=== PATIENT | male | born 1950 | race Caucasian/White ===

== ENCOUNTER 2022-05-30 15:23 | Inpatient (IN) | payer MEDICARE, SELFPAY ==
--- NOTE | 2022-05-30 15:40 | PC.NURSE ---
arrived by wheelchair to room 206 from admissions
--- NOTE | 2022-05-30 16:02 | ECG_ITS ---
APPROVED REPORT Exam: Resting ECG HR:101 bpm ECG Measurements Heart Rate 101 AXES QRSd 89 QRS -25 QT 370 T 49 QTc 428 Conclusion ATRIAL FIBRILLATION WITH RAPID VENTRICULAR RESPONSE WITH ABERRANT CONDUCTION OR VENTRICULAR PREMATURE COMPLEXES LOW QRS VOLTAGE IN PRECORDIAL LEADS [QRS DEFLECTION < 1.0 mV IN CHEST LEADS] INFERIOR MYOCARDIAL INFARCTION , PROBABLY OLD [40+ ms Q WAVE AND/OR ST/T ABNORMALITY IN II/aVF] ABNORMAL ECG UNCONFIRMED REPORT Electronically signed by : Frandy Cutler MD 05/30/2022 21:32:59
--- NOTE | 2022-05-30 16:02 | CA_ITS ---
APPROVED REPORT EXAM: Comprehensive 2D, Doppler, and color-flow Echocardiogram [employer] Burner: Isaura Upton, [place], RVS Ht: 6 ft 4 in Wt: 330lbs BSA: 2.74 BP: 167/92 mmHg Rhythm: Atrial Fibrillation Indications: CHF, Chest pressure, Possible inferior MS, SOB, Pedal edema, weight gain, HTN 2D Dimensions IVSd 1.44 cm LVEF (Visual) 35.20 % PWd 1.40 cm LA Volume 67.30 mL LVDd 6.06 cm LA Volume Index 24.00 mL/m2 (M/F) 16-34 LVDs 5.02 cm Aortic Root 3.48 cm Left Atrium 4.18 cm LVOT 2.12 cm (M/F) 1.5-2.5 M-Mode Dimensions RVDd 3.59 cm (0.9-2.6) LA Diam 4.28 cm (1.9-4.0) LVDd 5.73 cm (3.5-5.7) Ao Diam 4.12 cm (2.0-3.7) LVDs 4.87 cm (3.5-5.7) IVSd 1.13 cm (0.6-1.1) PWd 1.23 cm (0.6-1.1) EF (Teich) 37.30% EPSs 1.83 cm FS 18.30% EDV (Teich) 177.30 mL TAPSE 1.67 (<1.7) ESV (Teich) 111.20 mL LV Diastology E Decel Time 117.00 (160-240 msec) E/A Ratio 3.35 MED E' 6.20 (< 7 cm/sec) MED A' 2.70 cm/s E'/MED E' Ratio 19.35 (>14) LAT E' 8.40 (<10 cm/sec) LAT A' 6.00 cm/s E/LAT E' Ratio 14.29 (>14) Aortic Valve LVOT Max 74.00 (70-110 cm/s) LVOT VTI 12.67 cm AoV Peak Trever. 121.00 (50-130 cm/s) AO Peak GR. 5.90 mmHg AO Mean GR. 2.90 (<5 mmHg) AO VTI 18.18 (18-25 cm) JONATHON (VTI) 2.46 (2.5-4.5 cm2) Mitral Valve MV A Velocity 36.00 (40-130 cm/s) E/A Ratio 3.35 MV Decel. Time 117.00 (160-240 ms) Pulmonary Valve PV Peak Velocity 50.00 (50-150 cm/s) Tricuspid Valve TR P. Velocity 262.00 cm/s RAP Estimate 10.00 mmHg RVSP 37.40 mmHg Left Ventricle Technically difficult study because of the patient factors and poor acoustic windows. Left atrium is mildly enlarged, left ventricle is normal size mild concentric left ventricular hypertrophy, reduced left ventricular systolic function, estimated ejection fraction 40%, left ventricle is globally hypokinetic. Diastolic parameters are inconclusive. Right Ventricle Right atrium and right ventricle are mildly enlarged with normal contractility. Aortic Valve Aortic valve is thickened and calcified without Doppler evidence of aortic stenosis, there is mild aortic insufficiency. Mitral Valve Mitral valve leaflets are minimally thickened, there is mild mitral regurgitation. Tricuspid Valve Tricuspid valve grossly normal, there is mild tricuspid regurgitation, calculated right ventricular systolic pressure 37 mmHg. Pulmonic Valve Pulmonic valve is poorly visualized. Great Vessels Aortic root is normal size. Inferior vena cava is mildly dilated with less than 50% inspiratory collapse. Pericardium No significant pericardial effusion noted. Conclusion 1. Mild biatrial enlargement, normal left ventricular size, estimated ejection fraction 40%, left ventricle is globally hypokinetic, diastolic parameters are inconclusive. 2. Mildly enlarged right ventricle with normal contractility. 3. Thickened and calcified aortic valve without Doppler evidence of aortic stenosis, there is mild aortic insufficiency. 4. Mild mitral and tricuspid regurgitation. Calculated right ventricular systolic pressure 37 mmHg. 5. No significant pericardial effusion noted. 6. Inferior vena cava is mildly dilated with less than 50% inspiratory collapse. Electronically signed by : Barrie Adam MD 05/31/2022 05:39:38
--- NOTE | 2022-05-30 16:03 | EXP.CARD.CON ---
History of Present Illness History of Present Illness Consult date: 05/30/22 Requesting physician: Ammy Quiros Consult reason: shortness of breath Chief complaint: SOA, edema Additional Medical History:: 1. Obesity 2. Shortness of breath, edema and weight gain of 30 pounds in the last 6 months 3. Recurrent nephrolithiasis 4. 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 Patient was subsequently admitted for suspected congestive heart failure and possible atrial fibrillation. He admits he is long overdue for evaluation and has not seen anyone in 20 years. Non-smoker No history of diabetes Family history of coronary artery disease in his brother who last year at age 75 He takes no medications [facility] Disclaimer: The information contained in this section may have been updated after the patient was seen, as this information can be updated by other users. Family History (Updated 05/30/22 @ 16:00 by Rupali Brennan RN) Heart disease Heart attack Social History (Updated 05/30/22 @ 16:00 by Rupali Brennan RN) Smoking Status: Never smoker alcohol intake: current current occupational status: employed Travel in the last 8 weeks: None Review of Systems Review of Systems Review of systems:: pertinent systems reviewed and negative unless documented below *Cardiovascular Cardiovascular: Denies chest pain, Reports dyspnea, Reports leg edema and Reports orthopnea *Respiratory Respiratory: Reports dyspnea Exam Constitutional Constitutional: no acute distress *Routine Neck Exam Neck: Present supple; Absent JVD or carotid bruit *Routine Respiratory Exam Respiratory: Present CTA bilaterally *Routine Cardiovascular Exam Cardiovascular: Present RRR; Absent murmur, gallop or rubs *Routine Extremities Exam Extremities: Present edema Comments: Brawny, discolored lower extremities likely due to venous stasis. 3+ edema noted *Routine Neurological Exam Neurological: Present alert, oriented X3 and CN II-XII intact Meds Home Medications and Allergies Home Medications Medication Instructions Recorded Confirmed Type No Known Home Medications 05/30/22 05/30/22 History New Prescriptions to Start Prescriptions: Allergies Allergy/AdvReac Type Severity Reaction Status Date / Time INGREDIENT: NO KNOWN - NO Allergy Unknown Uncoded 04/16/17 14:51 KNOWN DRUG ALLERGY Assessment and Plan *Assessment and plan (1) Shortness of breath: Status: Acute Category: Medical Code(s): R06.02 - Shortness of breath (2) Paroxysmal nocturnal dyspnea: Status: Acute Category: Medical Code(s): R06.00 - Dyspnea, unspecified (3) Edema: Status: Acute Category: Medical Code(s): R60.9 - Edema, unspecified (4) Obesity: Status: Acute Category: Medical Code(s): E66.9 - Obesity, unspecified Plan 1. Recent constellation of symptoms including shortness of breath, paroxysmal nocturnal dyspnea, lower extremity edema with 30 pound weight gain and chest pressure at night. Concern for atrial fibrillation, congestive heart failure, cardiomyopathy among other etiologies. Will obtain EKG and echocardiogram and begin with a dose of IV Lasix to see if this will help with his lower extremity edema and shortness of breath. Labs are pending at this time. Chest x-ray has been ordered. Further recommendations to follow pending above results. 2. Obesity 3. History of nephrolithiasis EKG obtained does show atrial fibrillation with a rate of 101 bpm. Possible inferior GA. We will begin Lovenox short-term with plans to transition to oral anti
[2022-05-30 16:07] VITALS: BMI 40.2
--- NOTE | 2022-05-30 16:08 | XR_ITS ---
PROCEDURE INFORMATION: Exam: XR Chest Exam date and time: 05/30/2022 5:18 PM Age: 71 years old Clinical indication: Shortness of breath; Additional info: Chf TECHNIQUE: Imaging protocol: Radiologic exam of the chest. Views: 2 views. COMPARISON: No relevant prior studies available. FINDINGS: Lungs: No pulmonary edema or consolidation. Pleural spaces: Mild blunting of the left costophrenic angle. No pneumothorax. Heart/Mediastinum: Mild cardiomegaly. Aortic calcifications. Bones/joints: No acute abnormality. IMPRESSION: 1. Mild cardiomegaly. No pulmonary edema or consolidation. 2. Mild blunting of the left costophrenic angle may be secondary to pleural fluid, atelectasis, and/or prominent pleural fat.
--- NOTE | 2022-05-30 16:15 | CT_ITS ---
PROCEDURE INFORMATION: Exam: CTA Chest With Contrast Exam date and time: 05/30/2022 5:24 PM Age: 71 years old Clinical indication: Shortness of breath; Additional info: New a. Fib, SOA, pnd, le edema TECHNIQUE: Imaging protocol: Computed tomographic angiography of the chest with contrast. 3D rendering (Not supervised by radiologist): MIP and/or 3D reconstructed images were created by the technologist. Radiation optimization: All CT scans at this facility use at least one of these dose optimization techniques: automated exposure control; mA and/or kV adjustment per patient size (includes targeted exams where dose is matched to clinical indication); or iterative reconstruction. Contrast material: ISOVUE 370; Contrast volume: 70 ml; Contrast route: INTRAVENOUS (IV); Other protocol: This patient has received 0 known CTs and 0 known cardiac nuclear medicine studies in the 12 months prior to the current study. COMPARISON: CR XR CHEST 2V 05/30/2022 5:18 PM FINDINGS: Pulmonary arteries: Suboptimal arterial opacification of the pulmonary arteries (MPA HU 150-160). No pulmonary artery embolism identified with suboptimal evaluation of the peripheral pulmonary arteries. Main pulmonary artery is mildly dilated measuring 3.4 cm in diameter. Possible small posterior right lower lobe artery calcification. Aorta: Thoracic aorta is poorly opacified given phase of imaging. Dilated ascending thoracic aorta measures 4.7 cm in diameter. Scattered calcified aortic atherosclerosis. Lungs: Mild interlobular septal thickening in the lung bases. Mild dependent opacities likely reflect atelectasis. Pleural spaces: Small bilateral pleural effusions. No pneumothorax. Heart: Mild cardiomegaly. Aortic valvular calcifications. Mild mitral annular and valvular calcifications. Coronary arteries: Severe coronary artery calcifications. Lymph nodes: Mildly enlarged right hilar lymph node measuring 1.4 cm in short axis dimension, likely reactive. No other enlarged lymph nodes. Bones/joints: No acute osseous abnormality or suspicious osseous lesion. Multilevel degenerative changes of the included spine. Soft tissues: Unremarkable. Other findings: No acute abnormality within the included upper abdomen. Mild circumferential esophageal wall thickening. IMPRESSION: 1. Suboptimal arterial opacification of the pulmonary arteries. No central pulmonary artery embolism. Peripheral pulmonary arteries are suboptimally evaluated with no definite embolus seen. Mildly dilated main pulmonary artery suggesting there may be pulmonary arterial hypertension. 2. Dilated ascending thoracic aorta measuring 4.7 cm in diameter. 3. Small bilateral pleural effusions. Lung bases with mild interlobular septal thickening likely reflecting interstitial edema. 4. Mild cardiomegaly. Aortic valvular calcifications and mitral annular and valvular calcifications. Echocardiogram can be obtained as clinically indicated to assess cardiac and valvular function. 5. Severe coronary artery calcifications. 6. Mild circumferential esophageal wall thickening which could be related to degree of distention and/or esophagitis, correlate clinically.
[2022-05-30 16:23] VITALS: BP 152/82; PULSE 91; RESP 18; TEMP 36.7; O2SAT 97; BMI 40.2
[2022-05-30 16:26] VITALS: PULSE 100
[2022-05-30 16:29] LABS: Basophils # 0.1 K/mm3 (0-0.2); Basophils % 0.7 % (0.1-2.0); Eosinophils # 0.2 K/mm3 (0.0-0.4); Eosinophils % 2.3 % (0.1-12.0); Hematocrit 47.2 % (42.0-52.0); Hemoglobin 15.7 g/dL (14.1-18.0); Lymphocytes # 2.3 K/mm3 (0.7-4.5); Lymphocytes % 21.8 % (10-50); Mean Corpuscular HGB Conc 33.2 g/dL (31.8-35.4); Mean Corpuscular Hemoglobin 30.4 pg (27.0-31.2); Mean Corpuscular Volume 91.6 fl (80-94); Mean Platelet Volume 9.1 fl (7.4-10.4); Monocytes # 0.7 K/mm3 (0.1-1.0); Monocytes % 6.2 % (1.7-9.3); Neutrophils # 7.4 K/mm3 (1.8-7.8); Neutrophils % 69.1 % (37.0-80.0); Platelet Count 143 K/mm3 (142-424); Red Blood Count 5.16 M/mm3 (4.60-6.20); Red Cell Distribution Width 13.8 % (11.5-17.5); White Blood Count 10.6 K/mm3 (4.8-10.8)
[2022-05-30 16:33] LABS: Coronavirus 19, PCR Not Detected (NotDetected); Influenza A, PCR Not Detected (NotDetected); Influenza B, PCR Not Detected (NotDetected)
[2022-05-30 17:00] LABS: Alanine Aminotransferase 37 U/L (12-78); Albumin/Globulin Ratio 1.3 (1.1-1.8); Alkaline Phosphatase 47 U/L (38-126); Anion Gap 10.2 mEq/L (5-15); Aspartate Amino Transferase 46 U/L (17-59); Bilirubin,Total 0.7 mg/dl (0.2-1.3); Blood Urea Nitrogen 22 mg/dl (9-20); Calcium 8.6 mg/dl (8.4-10.2); Carbon Dioxide 23 mmol/L (22.0-30.0); Chloride 111 mmol/L (98-107); Creatinine Clearance Estimated 148 mL/min (50-200); Estimated Glomerular Filt Rate 74 ml/min (>60); GFR (African American) 90 ML/MIN (>60); Glucose 104 mg/dl (74-100); Potassium 4.2 mmoL/L (3.5-5.1); Sodium 140 mmol/L (136-145)
[2022-05-30 17:31] LABS: Thyroid Stimulating Hormone 2.82 uIU/mL (0.465-4.68)
[2022-05-30 17:50] LABS: Vitamin B12 250 pg/mL (239-931)
--- NOTE | 2022-05-30 17:52 | EXP.HP ---
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 He has had increasing shortness of breath over the past several months and reports that he has gained over 30 pounds over the past 6 months. He gets extremely short of breath with exertion. His leg edema has gotten worse with some darkening of the skin of the calfs bilaterally. He does not sleep well. He wakes up at nighttime short of breath. He has a significant family history for heart disease. A brother September 23, 2021 at age 75 of a heart attack. He also lost a half brother to heart disease. The patient is not a smoker. [facility] Disclaimer: The information contained in this section may have been updated after the patient was seen, as this information can be updated by other users. Medical History (Updated 05/30/22 @ 18:13 by Ammy Quiros MD) Heart failure Kidney stones Quadriceps tendon rupture Family History (Updated 05/30/22 @ 17:58 by Ammy Quiros MD) Coronary artery disease Heart disease Heart attack Cancer Social History (Updated 05/30/22 @ 16:00 by Rupali Brennan RN) Smoking Status: Never smoker alcohol intake: current current occupational status: employed Travel in the last 8 weeks: None Review of Systems Review of Systems Review of systems:: pertinent systems reviewed and negative unless documented below Constitutional Constitutional: Reports difficulty sleeping, Reports fatigue, Reports lethargy, Reports snoring and Reports weight gain (30 pounds over the past 6 months) Eyes Eyes: Reports system reviewed and no additional complaints, except as documented ENT Ears, Nose, Mouth, and Throat: Reports system reviewed and no additional complaints, except as documented *Cardiovascular Cardiovascular: Reports system reviewed and no additional complaints, except as documented, Denies chest pain, Reports dyspnea, Reports dyspnea on exertion, Reports edema, Reports irregular heart rhythm (Not aware), Reports leg edema, Reports leg ulcers, Reports orthopnea, Reports paroxysmal nocturnal dyspnea, Reports pedal edema and Denies syncope *Respiratory Respiratory: Reports dyspnea, Reports dyspnea on exertion and Reports snoring *Gastrointestinal Gastrointestinal: Denies belching, Denies bloating, Denies change in bowel habits, Denies change in stool character and Denies coffee ground emesis *Genitourinary Genitourinary: Reports system reviewed and no additional complaints, except as documented and Denies difficulty urinating *Musculoskeletal Musculoskeletal: Reports muscle weakness Integumentary/Breasts Skin/Breast: Reports system reviewed and no additional complaints, except as documented, Reports change in pigmentation (Legs) and Reports skin swelling *Neurologic Neurologic: Reports system reviewed and no additional complaints, except as documented and Denies syncope Psychiatric Psychiatric: Reports system reviewed and no additional complaints, except as documented Endocrine Endocrine: Reports system reviewed and no additional complaints, except as documented, Reports change in body appearance (Weight gain) and Reports fatigue Hematologic/Lymphatic Hematologic/Lymphatic: Reports system reviewed and no additional complaints, except as documented Allergic/Immunologic Allergic/Immunologic: Reports system reviewed and no additional complaints, except as documented Meds Home Medications and Allergies Home Medications Medication Instructions Recorded Confirmed Type No Known Home Medications 05/30/22 05/30/22 History New Prescriptions to Start Prescriptions: Allergies Allergy/AdvReac Type Severity Reaction Status Date / Time No Known Drug Allergies Allergy Verified 05/30/22 17:45 INGREDIENT: NO KNOWN - NO Allergy Unknown Uncoded 04/16/17 14:51 KNOWN DRUG ALLERGY
[2022-05-30 19:55] VITALS: BP 153/95; PULSE 96; RESP 18; TEMP 36.9; O2SAT 99
[2022-05-30 20:00] VITALS: PULSE 70
[2022-05-30 21:19] LABS: Hemoglobin A1C 7.5 % (4.0-6.0)
[2022-05-31] VITALS (25 sets, daily range): BP systolic 103–143; BP diastolic 62–97; PULSE 60–93; RESP 12–20; TEMP 36.4–37.1; O2SAT 94–98; BMI 39.9
--- NOTE | 2022-05-31 05:04 | PC.NURSE ---
NO ACUTE CHANGES THIS SHIFT. PT HAS RESTED INTERMITTENTLY THIS SHIFT. VSS. NO C/O CHEST PAIN OR SOB. BLE REMAIN SWOLLEN WITH +2 PITTING EDEMA. NO C/O PAIN THIS SHIFT. AMBULATING TO THE BATHROOM WITH STANDBY ASSIST. CALL DINH WITHIN REACH.
[2022-05-31 06:51] LABS: Chloride 110 mmol/L (98-107); Potassium 4.3 mmoL/L (3.5-5.1); Sodium 139 mmol/L (136-145)
[2022-05-31 06:54] LABS: Anion Gap 9.3 mEq/L (5-15); Blood Urea Nitrogen 18 mg/dl (9-20); Calcium 8.3 mg/dl (8.4-10.2); Carbon Dioxide 24 mmol/L (22.0-30.0); Chol/HDL Ratio 8.8 (1-3.5); Cholesterol 175 mg/dl (140-200); Creatinine Clearance Estimated 147 mL/min (50-200); Estimated Glomerular Filt Rate 84 ml/min (>60); GFR (African American) 101 ML/MIN (>60); Glucose 132 mg/dl (74-100); HDL Cholesterol 20 mg/dl (40-60); Triglycerides 222 mg/dl (30-150); VLDL Cholesterol 44 mg/dL (0-40)
[2022-05-31 07:05] LABS: Direct LDL Cholesterol 117.47 mg/dL (100-129)
--- NOTE | 2022-05-31 08:02 | EXP.ACUTE.PN ---
Subjective *Date: 05/31/22 *Time: 08:02 Interval history: He feels better today. He is not as short of breath. He only shows 3 pounds weight loss by the record. His legs definitely look improved. His lungs sound clear. He is in good spirits. Heart catheterization is planned for this afternoon. His ejection fraction was read as 40%. His LDL is 117. His A1c is 7.5%. CTA shows calcification of the coronary arteries. Medical Exam Vital signs and Labs for Last 24 Hours: Vital Signs Temp Pulse Pulse Resp BP Pulse Ox 05/31/22 07:30 97.9 F 87 17 143/94 H 96 05/31/22 04:00 60 05/31/22 04:00 97.8 F 87 18 142/78 H 96 05/30/22 20:00 70 05/31/22 00:00 80 05/31/22 00:00 98.6 F 83 20 119/71 98 05/30/22 19:55 98.4 F 96 H 18 153/95 H 99 05/30/22 16:26 100 H 05/30/22 16:23 98.1 F 91 H 18 152/82 H 97 Intake and Output 05/30/22 05/31/22 05/31/22 19:59 03:59 11:59 Intake Total 360 / 360 Output Total 0 / 0 0 / 0 Balance 0 / 360 360 / 360 Intake: Intake, Oral Amount 360 / 360 Output: Output, Urine Amount 0 / 0 0 / 0 Other: Number of Unmeasured Voids 1 Weight 330 lb 7 oz 327 lb 9 oz Patient Weight 05/31/22 11:59 Weight 327 lb 9 oz Laboratory Results - last 24 hr 05/30/22 16:00: SARS-CoV-2 (PCR) Not detected, Influenza A Untype (PCR) Not detected, Influenza Type B (PCR) Not detected 05/30/22 16:14: WBC 10.6, RBC 5.16, Hgb 15.7, Hct 47.2, MCV 91.6, MCH 30.4, MCHC 33.2, RDW 13.8, Plt Count 143, MPV 9.1, Neut % (Auto) 69.1, Lymph % (Auto) 21.8, [place] % (Auto) 6.2, Eos % (Auto) 2.3, Baso % (Auto) 0.7, Neut # (Auto) 7.4, Lymph # (Auto) 2.3, [place] # (Auto) 0.7, Eos # (Auto) 0.2, Baso # (Auto) 0.1 05/30/22 16:14: Sodium 140, Potassium 4.2, Chloride 111 H, Carbon Dioxide 23, Anion Gap 10.2, BUN 22 H, Creatinine 1.00, Estimated Creat Clear 148, Estimated GFR 74, Est GFR ( Amer) 90, Glucose 104 H, Calcium 8.6, Total Bilirubin 0.7, AST 46, ALT 37, Alkaline Phosphatase 47, Total Protein 7.0, Albumin 4.0, Globulin 3.0, Albumin/Globulin Ratio 1.3, Vitamin B12 250, TSH 2.82 05/30/22 16:14: Hemoglobin A1c 7.5 H 05/31/22 06:22: Sodium 139, Potassium 4.3, Chloride 110 H, Carbon Dioxide 24, Anion Gap 9.3, BUN 18, Creatinine 0.90, Estimated Creat Clear 147, Estimated GFR 84, Est GFR ( Amer) 101, Glucose 132 H D, Calcium 8.3 L, Triglycerides 222 H, Cholesterol 175, LDL Cholesterol Direct 117.47, VLDL Cholesterol 44 H, HDL Cholesterol 20 L, Cholesterol/HDL Ratio 8.8 H I & O for Labs for Last 24 Hours: Intake & Output 05/28/22 05/29/22 05/30/22 05/31/22 11:59 11:59 11:59 11:59 Intake Total 360 / 360 Output Total 0 / 0 Balance 360 / 360 Weight 327 lb 9 oz Head: Present normocephalic ENT: Present mucous membranes moist Neck: Present normal inspection Respiratory: Present CTA bilaterally (Improved.) and rales (A few faint bibasilar rales.); Absent respiratory distress or rhonchi Cardiac: Absent Regular Rhythm (Atrial fibrillation persists. Controlled rate.) GI: Present soft; Absent tenderness or organomegaly Rectal (male): Present deferred (male): Present deferred Extremities: Present edema (Edema is still marked but improved and the stasis changes have improved.) Skin: Present intact Neuro: Present alert and oriented x 3 Assessment and Plan *Assessment and plan (1) Heart failure with reduced ejection fraction: Status: Acute Category: Medical Code(s): I50.20 - Unspecified systolic (congestive) heart failure (2) Systolic congestive heart failure: Status: Acute Category: Medical Code(s): I50.20 - Unspecified systolic (congestive) heart failure (3) Atrial fibrillation: Status: Acute Category: Medical Code(s): I48.91 - Unspecified atrial fibrillation (4) Edema: Status: Acute Category: Medical Code(s): R60.9 - Edema, unspecified (5) Obesity: St
--- NOTE | 2022-05-31 08:13 | EXP.CARD.PN ---
Subjective Subjective Date: 05/31/22 Time: 08:13 Principal diagnosis: CHF, A. fib, CM Interval history: 71-year-old white male in bed in no acute distress. Patient states he did sleep better last night after diuresis yesterday. He believes his edema in his lower extremities has improved some. Echocardiogram shows an EF of around 40% with global hypokinesis. CTA of the chest negative for large pulmonary emboli with poor imaging of the smaller arteries. Dilated ascending thoracic aorta measuring 4.7 cm. Severe coronary calcifications noted. Mild circumferential esophageal wall thickening possibly related to distention or esophagitis. Discussed recommendation for cardiac catheterization and patient agrees to proceed. Risk, benefits and procedure explained to the patient. Exam Data for Last 24 hours Vital signs and Labs for Last 24 Hours: Temp Pulse Resp BP Pulse Ox 97.9 F 87 17 143/94 H 96 05/31/22 07:30 05/31/22 07:30 05/31/22 07:30 05/31/22 07:30 05/31/22 07:30 Laboratory Results - last 24 hr 05/30/22 16:00: SARS-CoV-2 (PCR) Not detected, Influenza A Untype (PCR) Not detected, Influenza Type B (PCR) Not detected 05/30/22 16:14: WBC 10.6, RBC 5.16, Hgb 15.7, Hct 47.2, MCV 91.6, MCH 30.4, MCHC 33.2, RDW 13.8, Plt Count 143, MPV 9.1, Neut % (Auto) 69.1, Lymph % (Auto) 21.8, [place] % (Auto) 6.2, Eos % (Auto) 2.3, Baso % (Auto) 0.7, Neut # (Auto) 7.4, Lymph # (Auto) 2.3, [place] # (Auto) 0.7, Eos # (Auto) 0.2, Baso # (Auto) 0.1 05/30/22 16:14: Sodium 140, Potassium 4.2, Chloride 111 H, Carbon Dioxide 23, Anion Gap 10.2, BUN 22 H, Creatinine 1.00, Estimated Creat Clear 148, Estimated GFR 74, Est GFR ( Amer) 90, Glucose 104 H, Calcium 8.6, Total Bilirubin 0.7, AST 46, ALT 37, Alkaline Phosphatase 47, Total Protein 7.0, Albumin 4.0, Globulin 3.0, Albumin/Globulin Ratio 1.3, Vitamin B12 250, TSH 2.82 05/30/22 16:14: Hemoglobin A1c 7.5 H 05/31/22 06:22: Sodium 139, Potassium 4.3, Chloride 110 H, Carbon Dioxide 24, Anion Gap 9.3, BUN 18, Creatinine 0.90, Estimated Creat Clear 147, Estimated GFR 84, Est GFR ( Amer) 101, Glucose 132 H D, Calcium 8.3 L, Triglycerides 222 H, Cholesterol 175, LDL Cholesterol Direct 117.47, VLDL Cholesterol 44 H, HDL Cholesterol 20 L, Cholesterol/HDL Ratio 8.8 H I & O for Last 24 hours: Intake & Output 05/28/22 05/29/22 05/30/22 05/31/22 11:59 11:59 11:59 11:59 Intake Total 360 / 360 Output Total 0 / 0 Balance 360 / 360 Weight 327 lb 9 oz Constitutional Constitutional: no acute distress *Routine Respiratory Exam Respiratory: Present crackles Comments: Basilar crackles *Routine Cardiovascular Exam Cardiovascular: Present irregularly irregular *Routine Extremities Exam Extremities: Present edema Progress Note: A&P Assessment and plan (1) Heart failure with reduced ejection fraction: Status: Acute (2) Systolic congestive heart failure: Status: Acute (3) Atrial fibrillation: Status: Acute (4) Edema: Status: Acute (5) Obesity: Status: Acute (6) Type 2 diabetes mellitus: Status: Acute (7) Hyperlipidemia associated with type 2 diabetes mellitus: Status: Acute Assessment and Plan Assessment and Plan for All Diagnoses:: 1. Newly diagnosed atrial fibrillation. Patient did receive a dose of Lovenox last evening but with plans for cardiac catheterization today we will hold off until after cardiac catheterization to implement oral anticoagulation. 2. Newly diagnosed HFrEF with ejection fraction of 40% with global hypokinesis. Patient is on IV Lasix. We will start carvedilol and Entresto. 3. Severe coronary artery calcifications noted with plans for cardiac catheterization today. 4. Newly diagnosed diabetes mellitus type 2, per Dr. Quiros 5. Hyperlipidemia, statin therapy started 6. Dilated ascending thoracic aorta measuring 4.7 cm 7. Obesity SCAI score A6
--- NOTE | 2022-05-31 08:38 | IR_ITS ---
APPROVED REPORT Patient Location: Inpatient Developing Machine Operator: ZEN Macedo RT (R) PROCEDURES Left heart catheterization Left ventriculogram Selective coronary angiogram INDICATION New onset cardiomyopathy, New onset atrial fibrillation, Coronary artery disease, Extensive coronary artery calcification Informed consent was obtained prior to the procedure. COMPLICATIONS None Estimated Blood Loss: Less than 10 mls TECHNIQUE One percent lidocaine used to anesthetize the right anterior aspect of the wrist. The right radial artery was accessed via the Seldinger technique. A 6 Khmer sheath was placed in the right radial artery. 2.5 mg of verapamil, 800 mcg of nitroglycerin, 1mg Lidocaine and 5000 U Heparin were given through the arterial sheath. The papa catheter and EBU 3.75 guide catheter were also used to perform left heart catheterization, left ventriculogram and selective coronary angiogram. At the end of the procedure the sheath was removed good hemostasis was achieved using Traclet band, patient was transferred to the postop holding area in stable condition. ANGIOGRAPHIC RESULTS The left main artery Normal The left anterior descending artery Proximal calcified with an eccentric 70 to 80% stenosis followed by an additional proximal 70% calcified stenosis followed by an additional calcified proximal 70 to 80% stenosis with mid vessel 30% stenoses and a distal 40 to 50% stenosis. Large first diagonal artery has proximal 40% stenoses The circumflex artery Is dominant and gives rise to a moderate sized ramus intermedius which has proximal 60 and 70% tandem stenoses. The circumflex artery itself has an eccentric 50% stenosis with a 90% concentric stenosis at the origin of a large terminal bifurcating obtuse marginal artery. The superior branch of the terminal obtuse marginal artery has a proximal 40% stenosis and is 2.5 mm in diameter while the inferior branch has a 1 cm segment concentric 90% stenosis which supplies a 2 mm and a 1.75 mm additional branch The right coronary artery Nondominant and proximally subtotally occluded The DOW ventriculogram reveals Dilated ventricle ejection fraction 40% The left ventricular end-diastolic pressure 35 to 40 mmHg IMPRESSION Severe calcified three-vessel coronary disease as described above Dilated ventricle with reduced ejection fraction accompanied by severely elevated LVEDP PLAN 1. Patient requires revascularization. We will discuss options. My first recommendation is that of coronary artery bypass surgery. Our understanding is patient may be reluctant to proceed with bypass surgery therefore percutaneous revascularization options will be discussed with him tomorrow. 2. Beta-blockers and Entresto 3. LDL less than 55 to be achieved with high intensity statin 4. Anticoagulation for atrial fibrillation Electronically signed by : Alex Milton MD 05/31/2022 14:07:53
[2022-05-31 08:52] LABS: NT Pro Brain Natriuretic Pep. 2090 pg/mL (0-125)
--- NOTE | 2022-05-31 19:01 | PC.NURSE ---
pts vs have been stable since coming back to floor from laborer [place]. tracelet came off at 1900, dsg cdi. pt has son at bedside. independent to br. no questions or concerns at this time.
[2022-06-01] VITALS: BP 102/61; PULSE 70; PULSE 77; PULSE 88; RESP 18; TEMP 36.5; O2SAT 94
--- NOTE | 2022-06-01 00:33 | PC.NURSE ---
DR MARTIN NOTIFIED RE: AFIB CONTROLLED RATE AND 15 BEAT RUN V TACH. ORDER TO CONTINUE TO MONITOR. PATIENT IS ASYMPTOMATIC.
[2022-06-01 02:00] VITALS: PULSE 70
--- NOTE | 2022-06-01 03:06 | PC.NURSE ---
S/P CARDIAC CATH 05/31/22. A FIB CONTROLLED RATE ON TELEMETRY. VSS/AFEBRILE. DRSG TO RIGHT RADIAL C/D/I. SON AT BEDSIDE.
[2022-06-01 04:00] VITALS: BP 112/85; PULSE 65; PULSE 74; RESP 18; TEMP 36.4; O2SAT 99; BMI 38.7
[2022-06-01 07:53] LABS: Basophils # 0.1 K/mm3 (0-0.2); Basophils % 0.9 % (0.1-2.0); Chloride 106 mmol/L (98-107); Eosinophils # 0.2 K/mm3 (0.0-0.4); Eosinophils % 2.6 % (0.1-12.0); Hematocrit 50.1 % (42.0-52.0); Lymphocytes # 2.3 K/mm3 (0.7-4.5); Lymphocytes % 26.1 % (10-50); Mean Corpuscular HGB Conc 31.9 g/dL (31.8-35.4); Mean Platelet Volume 8.9 fl (7.4-10.4); Monocytes # 0.5 K/mm3 (0.1-1.0); Monocytes % 5.6 % (1.7-9.3); Neutrophils # 5.6 K/mm3 (1.8-7.8); Neutrophils % 64.7 % (37.0-80.0); Platelet Count 150 K/mm3 (142-424); Red Blood Count 5.33 M/mm3 (4.60-6.20); Red Cell Distribution Width 13.9 % (11.5-17.5); Sodium 140 mmol/L (136-145); White Blood Count 8.6 K/mm3 (4.8-10.8)
[2022-06-01 07:56] LABS: Blood Urea Nitrogen 15 mg/dl (9-20); Calcium 8.3 mg/dl (8.4-10.2); Carbon Dioxide 30 mmol/L (22.0-30.0); Creatinine Clearance Estimated 142 mL/min (50-200); Estimated Glomerular Filt Rate 84 ml/min (>60); GFR (African American) 101 ML/MIN (>60); Glucose 142 mg/dl (74-100)
[2022-06-01 08:00] VITALS: BP 125/73; PULSE 68; PULSE 73; RESP 18; TEMP 36.7; O2SAT 96
--- NOTE | 2022-06-01 08:16 | EXP.ACUTE.PN ---
Subjective *Date: 06/01/22 *Time: 08:16 Interval history: Patient is feeling well this am. He states he actually has energy today and feels like getting up and walking. Has lost a significant amount of weight. Has been eating and drinking. Medical Exam Vital signs and Labs for Last 24 Hours: Vital Signs Temp Pulse Pulse Resp BP Pulse Ox 06/01/22 04:00 97.6 F 74 18 112/85 99 06/01/22 04:00 65 06/01/22 04:00 65 05/31/22 23:22 88 06/01/22 02:00 70 06/01/22 00:00 70 06/01/22 00:00 88 06/01/22 00:00 97.7 F 77 18 102/61 L 94 L 05/31/22 20:00 70 05/31/22 20:00 94 L 05/31/22 21:05 98.6 F 66 18 107/62 L 94 L 05/31/22 20:05 98.0 F 72 18 103/64 L 95 05/31/22 19:05 98.0 F 82 18 108/73 L 96 05/31/22 12:00 76 05/31/22 16:00 68 05/31/22 18:05 97.8 F 61 16 128/88 95 05/31/22 16:00 68 05/31/22 12:00 76 05/31/22 17:05 97.9 F 62 16 113/69 97 05/31/22 16:35 98.0 F 77 16 119/77 97 05/31/22 16:05 97.6 F 61 16 103/77 L 96 05/31/22 15:35 97.8 F 66 16 114/76 97 05/31/22 15:05 97.6 F 92 H 18 117/86 97 05/31/22 14:50 98.0 F 74 16 119/97 H 05/31/22 14:35 98.0 F 81 16 110/87 97 05/31/22 14:00 70 18 131/87 97 05/31/22 14:05 82 12 140/92 H 95 05/31/22 14:03 85 05/31/22 13:55 82 18 137/89 97 05/31/22 13:50 76 18 133/93 H 95 05/31/22 11:04 98.8 F 80 18 123/83 96 Intake and Output 05/31/22 06/01/22 06/01/22 19:59 03:59 11:59 Intake Total 300 / 1300 1000 / 1300 Balance 300 / 1300 1000 / 1300 Intake: Intake, Oral Amount 300 / 1300 1000 / 1300 Other: Number of Voids 2 Number of Unmeasured Voids 2 Weight 317 lb 12.8 oz Patient Weight 06/01/22 11:59 Weight 317 lb 12.8 oz Laboratory Results - last 24 hr 05/31/22 06:22: NT-Pro-B Natriuret Pep 2090 H 06/01/22 07:40: WBC 8.6, RBC 5.33, Hgb 16.0, Hct 50.1, MCV 94.0, MCH 30.0, MCHC 31.9, RDW 13.9, Plt Count 150, MPV 8.9, Neut % (Auto) 64.7, Lymph % (Auto) 26.1, [place] % (Auto) 5.6, Eos % (Auto) 2.6, Baso % (Auto) 0.9, Neut # (Auto) 5.6, Lymph # (Auto) 2.3, [place] # (Auto) 0.5, Eos # (Auto) 0.2, Baso # (Auto) 0.1 06/01/22 07:40: Sodium 140, Potassium 4.0, Chloride 106, Carbon Dioxide 30, Anion Gap 8.0, BUN 15, Creatinine 0.90, Estimated Creat Clear 142, Estimated GFR 84, Est GFR ( Amer) 101, Glucose 142 H, Calcium 8.3 L I & O for Labs for Last 24 Hours: Intake & Output 05/29/22 05/30/22 05/31/22 06/01/22 11:59 11:59 11:59 11:59 Intake Total 360 / 360 1300 / 1300 Output Total 0 / 0 Balance 360 / 360 1300 / 1300 Weight 327 lb 9 oz 317 lb 12.8 oz Microbiology Reports for the Last 24 Hours: Microbiology 05/30/22 16:23 Urine,Clean Catch Urine Culture - Preliminary NO GROWTH AFTER 24 HOURS Head: Present normocephalic ENT: Present mucous membranes moist Neck: Present normal inspection Respiratory: Present CTA bilaterally (Improved.) and rales (A few faint bibasilar rales.); Absent respiratory distress or rhonchi Cardiac: Absent Regular Rhythm (Atrial fibrillation persists. Controlled rate.) GI: Present soft; Absent tenderness or organomegaly Rectal (male): Present deferred (male): Present deferred Extremities: Present edema (Edema is still marked but improved and the stasis changes have improved.) Skin: Present intact Neuro: Present alert and oriented x 3 Assessment and Plan *Assessment and plan (1) Heart failure with reduced ejection fraction: Status: Acute Category: Medical Code(s): I50.20 - Unspecified systolic (congestive) heart failure (2) Systolic congestive heart failure: Status: Acute Category: Medical Code(s): I50.20 - Unspecified systolic (congestive) heart failure (3) Atrial fibrillation: Status: Acute Category: Medical Code(s): I48
--- NOTE | 2022-06-01 10:31 | P.PN_ITS ---
Subjective Subjective Date: 06/01/22 Time: 12:20 Principal diagnosis: CHF, A. fib, CM Interval history: 71 yo WM in room in NAD. No complaints overnight. Wt down 13 lbs this admit. Renal function stable. Telemetry shows sinus rhythm with brief run of nonsustained V. tach early this morning. Patient is agreeable to proceed with bypass surgery. We have spoken with and will begin transfer process. Exam Data for Last 24 hours Vital signs and Labs for Last 24 Hours: Temp Pulse Resp BP Pulse Ox 98.0 F 68 18 125/73 96 06/01/22 08:00 06/01/22 08:00 06/01/22 08:00 06/01/22 08:00 06/01/22 08:00 Laboratory Results - last 24 hr 06/01/22 07:40: WBC 8.6, RBC 5.33, Hgb 16.0, Hct 50.1, MCV 94.0, MCH 30.0, MCHC 31.9, RDW 13.9, Plt Count 150, MPV 8.9, Neut % (Auto) 64.7, Lymph % (Auto) 26.1, [place] % (Auto) 5.6, Eos % (Auto) 2.6, Baso % (Auto) 0.9, Neut # (Auto) 5.6, Lymph # (Auto) 2.3, [place] # (Auto) 0.5, Eos # (Auto) 0.2, Baso # (Auto) 0.1 06/01/22 07:40: Sodium 140, Potassium 4.0, Chloride 106, Carbon Dioxide 30, Anion Gap 8.0, BUN 15, Creatinine 0.90, Estimated Creat Clear 142, Estimated GFR 84, Est GFR ( Amer) 101, Glucose 142 H, Calcium 8.3 L I & O for Last 24 hours: Intake & Output 05/29/22 05/30/22 05/31/22 06/01/22 11:59 11:59 11:59 11:59 Intake Total 360 / 360 1540 / 1540 Output Total 0 / 0 Balance 360 / 360 1540 / 1540 Weight 327 lb 9 oz 317 lb 12.8 oz Microbiology Reports for the Last 24 Hours: Microbiology 05/30/22 16:23 Urine,Clean Catch Urine Culture - Preliminary NO GROWTH AFTER 24 HOURS Constitutional Constitutional: no acute distress *Routine Respiratory Exam Respiratory: Present CTA bilaterally *Routine Cardiovascular Exam Cardiovascular: Present irregularly irregular *Routine Extremities Exam Extremities: Present edema Progress Note: A&P Assessment and plan (1) Heart failure with reduced ejection fraction: Status: Acute (2) Systolic congestive heart failure: Status: Acute (3) Atrial fibrillation: Status: Acute (4) Edema: Status: Acute (5) Obesity: Status: Acute (6) Type 2 diabetes mellitus: Status: Acute (7) Hyperlipidemia associated with type 2 diabetes mellitus: Status: Acute (8) Coronary artery disease: Status: Acute Assessment and Plan Assessment and Plan for All Diagnoses:: 1. Newly diagnosed atrial fibrillation. On lovenox. Rate controlled on coreg. 2. Newly diagnosed HFrEF with ejection fraction of 40% with global hypokinesis. Patient is on IV Lasix. We will start carvedilol and Entresto. Wt down 13 lbs. 3. Severe coronary artery calcifications noted with three-vessel CABG on left heart catheterization with recommendation for CABG. 4. Newly diagnosed diabetes mellitus type 2, per Dr. Quiros 5. Hyperlipidemia, statin therapy started 6. Dilated ascending thoracic aorta measuring 4.7 cm 7. Obesity Continue current medications. Transfer to for consideration of CABG. Follow-up in our office as an outpatient
[2022-06-01 12:00] VITALS: BP 133/81; PULSE 84; RESP 16; TEMP 37.1; O2SAT 96
[2022-06-01 14:57] VITALS: BMI 38.6
--- NOTE | 2022-06-01 16:25 | PC.NURSE ---
REPORT WAS CALLED TO [facility]. AMBULANCE NOTIFIED FOR TRANSPORT. PT IS ALERT AND ORIENTED AND AWARE OF WHAT IS GOING ON. PT LEFT FACILITY AT 1626.
--- NOTE | 2022-06-04 15:37 | EXP.DC.SUM ---
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 He has had increasing shortness of breath over the past several months and reports that he has gained over 30 pounds over the past 6 months. He gets extremely short of breath with exertion. His leg edema has gotten worse with some darkening of the skin of the calfs bilaterally. He does not sleep well. He wakes up at nighttime short of breath. He has a significant family history for heart disease. A brother September 23, 2021 at age 75 of a heart attack. He also lost a half brother to heart disease. The patient is not a smoker. Hospital Course Hospital Course Hospital Course: Cardiology saw patient at admission with the following documentation and plan: Plan 1.? Recent constellation of symptoms including shortness of breath, paroxysmal nocturnal dyspnea, lower extremity edema with 30 pound weight gain and chest pressure at night.? Concern for atrial fibrillation, congestive heart failure, cardiomyopathy among other etiologies.? Will obtain EKG and echocardiogram and begin with a dose of IV Lasix to see if this will help with his lower extremity edema and shortness of breath.? Labs are pending at this time.? Chest x-ray has been ordered.? Further recommendations to follow pending above results. 2.? Obesity 3.? History of nephrolithiasis EKG obtained showed atrial fibrillation with a rate of 101 bpm.? Possible inferior SD.? We will begin Lovenox short-term with plans to transition to oral anticoagulation prior to discharge. Will obtain CTA of the chest to rule out pulmonary embolus as source of possible shortness of breath and lower extremity edema in a patient who is morbidly obese. The day following admission patient felt better. He was not short of breath. His legs had less edema. And his lungs sounded clear. He was followed by cardiology with a new diagnosis of HFrEF with an ejection fraction of 40% with global hypokinesis. He was started on carvedilol and Entresto. With his severe coronary artery calcification, cardiac catheterization was planned. He was also noted to be a newly diagnosed diabetic type II. Cardiac cath revealed severe calcified three-vessel coronary disease with a dilated ventricle with reduced ejection fraction. Patient was felt to need revascularization. Patient was noted to have a 13 pound weight loss with diuresis. CABG was discussed and patient and family were in agreement. This was to be facilitated by cardiology. In the PM of 06/01/2022 Patient was transferred to for consideration of CABG via ambulance. Exam Data for Last 24 hours Vital signs and Labs for Last 24 Hours: Temp Pulse Resp BP Pulse Ox 98.8 F 84 16 133/81 96 06/01/22 12:00 06/01/22 12:00 06/01/22 12:00 06/01/22 12:00 06/01/22 12:00 I & O for Last 24 hours: Intake & Output 06/02/22 06/03/22 06/04/22 06/05/22 11:59 11:59 11:59 11:59 Intake Total 240 / 240 Balance 240 / 240 Weight 317 lb 7.45 oz Narrative: Medical Exam Vital signs and Labs for Last 24 Hours: Vital Signs ? Temp Pulse Pulse Resp BP Pulse Ox ?06/01/22 04:00 ?97.6 F ? ?74 ?18 ?112/85 ?99 ?06/01/22 04:00 ? ?65 ?06/01/22 04:00 ? ?65 ?05/31/22 23:22 ? ?88 ?06/01/22 02:00 ? ?70 ?06/01/22 00:00 ? ?70 ?06/01/22 00:00 ? ?88 ?06/01/22 00:00 ?97.7 F ? ?77 ?18 ?102/61 L ?94 L ?05/31/22 20:00 ? ?70 ?05/31/22 20:00 ?94 L ?05/31/22 21:05 ?98.6 F ? ?66 ?18 ?107/62 L ?94 L ?05/31/22 20:05 ?98.0 F ? ?72 ?18 ?103/64 L ?95 ?05/31/22 19:05 ?98.0 F ? ?82 ?18 ?108/73 L ?96 ?05/31/22 12:00 ? ?76 ?05/31/22 16:00 ? ?68 ?05/31/22 18:05 ?97.8 F ? ?61 ?16 ?128/88 ?95 ?05/31/22 16:00 ? ?68 ?05/31/22 12:00 ? ?76 ?05/31/22 17:05 ?97.9 F ? ?62 ?16 ?113/69 ?97 ?05/31/22 16:35 ?98.0 F ? ?77 ?16
== END 2022-06-01 16:28 | disposition short-term general hospital (02) | DRG 286 ==
PROVIDERS: Internal Medicine; Admitting Provider Family Medicine; PCP Family Medicine; Visit Provider Family Medicine
PROC: 4A023N7 Measurement of Cardiac Sampling and Pressure, Left Heart, Percutaneous Approach (ICD-10-PCS; principal; 2022-05-31 14:00)
DX: I48.91 Unspecified atrial fibrillation (principal); I50.21 Acute systolic (congestive) heart failure; I25.10 Atherosclerotic heart disease of native coronary artery without angina pectoris; I42.9 Cardiomyopathy, unspecified; E66.9 Obesity, unspecified; Z68.38 Body mass index [BMI] 38.0-38.9, adult; E78.5 Hyperlipidemia, unspecified; E11.69 Type 2 diabetes mellitus with other specified complication
CPT/HCPCS: G0379; 36415; 71046; 71275; 80048; 80053; 80061; 82607; 83036; 83880; 84443; 85025; 87086; 93005; 93306; 93458; 99152; C1725; C1760; C1769; C9803; J1644; Q9967; U0003; U0005

== ENCOUNTER → 2022-08-15 11:29 | Outpatient (CLI) | payer MEDICARE, SELFPAY ==
--- NOTE | 2022-08-15 11:36 | XR_ITS ---
FINAL REPORT CLINICAL HISTORY: CAD COMPARISON: None FINDINGS: Two views of the chest were obtained. The heart size and pulmonary vascularity are within normal limits. The mediastinum is normal. No acute pulmonary abnormality is identified. There is no pneumothorax. Moderate degenerative change in the thoracic spine. IMPRESSION: No acute cardiopulmonary process. Reviewed, Interpreted and Dictated by Rhys Meza III, MD Transcribed by Za Gomez Authenticated and [facility]
[2022-08-15 13:22] LABS: Prothrombin Time 11.8 seconds (10.1-12.5)
[2022-08-15 13:23] LABS: Basophils % 0.4 % (0.1-2.0); Eosinophils # 0.1 K/mm3 (0.0-0.4); Eosinophils % 1.8 % (0.1-12.0); Hematocrit 49.8 % (42.0-52.0); Hemoglobin 16.3 g/dL (14.1-18.0); Lymphocytes # 2.3 K/mm3 (0.7-4.5); Lymphocytes % 29.2 % (10-50); Mean Corpuscular HGB Conc 32.8 g/dL (31.8-35.4); Mean Corpuscular Hemoglobin 29.9 pg (27.0-31.2); Mean Corpuscular Volume 91.1 fl (80-94); Mean Platelet Volume 9.2 fl (7.4-10.4); Monocytes # 0.6 K/mm3 (0.1-1.0); Monocytes % 7.4 % (1.7-9.3); Neutrophils # 4.8 K/mm3 (1.8-7.8); Neutrophils % 61.2 % (37.0-80.0); Platelet Count 167 K/mm3 (142-424); Red Blood Count 5.47 M/mm3 (4.60-6.20); Red Cell Distribution Width 14.4 % (11.5-17.5); White Blood Count 7.9 K/mm3 (4.8-10.8)
[2022-08-15 15:47] LABS: Alanine Aminotransferase 29 U/L (12-78); Albumin Level 4.5 g/dl (3.5-5.0); Albumin/Globulin Ratio 1.3 (1.1-1.8); Alkaline Phosphatase 75 U/L (38-126); Anion Gap 15.8 mEq/L (5-15); Aspartate Amino Transferase 38 U/L (17-59); Bilirubin,Total 0.9 mg/dl (0.2-1.3); Blood Urea Nitrogen 19 mg/dl (9-20); Calcium 9.2 mg/dl (8.4-10.2); Carbon Dioxide 24 mmol/L (22.0-30.0); Chloride 104 mmol/L (98-107); Estimated Glomerular Filt Rate 96 ml/min (>60); GFR (African American) 116 ML/MIN (>60); Globulin 3.4 g/dL (1.3-3.2); Glucose 115 mg/dl (74-100); Potassium 4.8 mmoL/L (3.5-5.1); Sodium 139 mmol/L (136-145); Total Protein,Serum 7.9 g/dl (6.3-8.2)
== END ==
PROVIDERS: PCP Family Medicine; Visit Provider Thoracic Surgery (Cardiothoracic Vascular Surgery)
DX: I25.119 Atherosclerotic heart disease of native coronary artery with unspecified angina pectoris (principal)
CPT/HCPCS: 36415; 71046; 80053; 85025; 85610

== ENCOUNTER 2022-10-04 14:42 | Observation (INO) | payer MEDICARE, SELFPAY ==
[2022-10-04] VITALS (14 sets, daily range): BP systolic 104–135; BP diastolic 63–110; PULSE 71–100; RESP 13–20; TEMP 37.1; O2SAT 97–98; BMI 35.5; BMI 34.6
--- NOTE | 2022-10-04 14:44 | ECG_ITS ---
APPROVED REPORT Exam: Resting ECG HR:77 bpm ECG Measurements Heart Rate 77 AXES QRSd 109 QRS -35 QT 412 T 59 QTc 444 Conclusion ATRIAL FLUTTER/TACHYCARDIA WITH ABERRANT CONDUCTION OR VENTRICULAR PREMATURE COMPLEXES POSSIBLE RIGHT VENTRICULAR CONDUCTION DELAY [RSR (QR) IN V1/V2] MODERATE VOLTAGE CRITERIA FOR LVH, CONSIDER NORMAL VARIANT [MEETS CRITERIA IN ONE OF: R(aVL), S(V1), R(V5), R(V5/V6)+S(V1)] ABNORMAL ECG INTERPRETATION BASED ON A DEFAULT AGE OF 40 YEARS UNCONFIRMED REPORT Electronically signed by : Frandy Cutler MD 10/05/2022 08:30:34
--- NOTE | 2022-10-04 14:50 | HMH.EDGENADL ---
Discharge Plan Disposition Chief Complaint: Arrhythmia/Palpitations Clinical Impressions Clinical Impression: New onset atrial flutter, Congestive heart failure (CHF) Discharge ED Provider: Lux Vaughn General Adult HPI General Chief complaint: Arrhythmia/Palpitations Stated complaint: Arrythmia Time Seen by Provider: 10/04/22 14:44 Mode of Arrival: Wheelchair Source of Information: Patient and Spouse History of Present Illness HPI narrative: The patient was brought to the emergency department by his offline cutter for new onset atrial flutter. The patient has history of congestive heart failure and had coronary artery bypass surgery the end of July. He did not notice the atrial flutter. This was noticed by his offline cutter for during a follow-up visit. Related Data Home Medications Medication Instructions Recorded Confirmed apixaban 5 mg tablet (Eliquis) 5 mg PO BID Blood thinner 10/04/22 10/04/22 atorvastatin 80 mg tablet 80 mg PO HS Cholesterol 10/04/22 10/04/22 clopidogrel 75 mg tablet 75 mg PO DAILY Blood thinner 10/04/22 10/04/22 docusate sodium 100 mg capsule 100 mg PO BID stool 10/04/22 10/04/22 furosemide 40 mg tablet 80 mg PO BID Edema 10/04/22 10/04/22 isosorbide mononitrate 30 mg 30 mg PO DAILY blood pressure 10/04/22 10/04/22 tablet,extended release 24 hr metformin 500 mg tablet 500 mg PO DAILY dm 10/04/22 10/04/22 Allergies Allergy/AdvReac Type Severity Reaction Status Date / Time No Known Drug Allergies Allergy Verified 10/04/22 13:54 [facility] Disclaimer: The information contained in this section may have been updated after the patient was seen, as this information can be updated by other users. Medical History (Updated 10/04/22 @ 17:09 by Lux Vaughn MD) Heart failure Kidney stones Quadriceps tendon rupture Surgical History S/P CABG x 3 Family History Other Cancer Coronary artery disease Heart attack Heart disease Social History Smoking Status: Never smoker alcohol intake: current current occupational status: employed Travel in the last 8 weeks: None ROS Obtained: Yes All systems reviewed & no additional complaints except as documented Cardiovascular Cardiovascular: Reports pedal edema Physical Exam General General appearance: alert Head Head exam: atraumatic Eye Eye exam: Present normal appearance ENT ENT exam: Present normal exam Neck Neck exam: Present normal inspection and full ROM; Absent tenderness or meningismus Chest Chest inspection: Present normal inspection and symmetric chest wall rise; Absent tenderness Respiratory Respiratory exam: Present normal lung sounds bilaterally; Absent respiratory distress or accessory muscle use Cardiovascular Cardiovascular exam: Present normal rhythm, irregular rhythm and normal heart sounds; Absent regular rate, bradycardia or tachycardia Abdominal Exam Abdominal exam: Present soft and normal bowel sounds; Absent distention, tenderness, heel tap sign, Finch's sign, Rovsing's sign, tenderness at McBurney's Point or mass Extremities Exam Extremities exam: Present normal inspection, full ROM and edema (+2 pitting edema bilaterally.) Back Exam Back exam: Present normal inspection; Absent CVA tenderness (R) or CVA tenderness (L) Neurological Exam Neurological exam: Present alert and oriented X3 Psychiatric Psychiatric exam: Present normal affect and normal mood Skin Skin exam: Present warm, dry, intact and normal color Medical Decision Making Shaquille Inquiry Pt receiving controlled substance: No Vital Signs: 10/04/22 14:42 10/04/22 15:11 10/04/22 15:06 Temperature Temperature Source Pulse Rate 72 81 Pulse Rate [Right] 100 H Respiratory Rate 19 16 Blood Pressure 128/82 112/70 Blood Pressure [Right Arm] 135/110 H Blood Pr
--- NOTE | 2022-10-04 14:53 | PC.NURSE ---
Per Dr. Vaughn. VO Metoprolol 5mg IVP q 5 mins with max 25mg or SBP < 90.
--- NOTE | 2022-10-04 15:35 | PC.NURSE ---
notified of sustained A-Flutter with Max of Metoprolol administered as directed.
--- NOTE | 2022-10-04 15:36 | PC.NURSE ---
Dr Simon vázquez for Dr Quiros pt.
--- NOTE | 2022-10-04 15:37 | PC.NURSE ---
Dr Vaughn speaking with dr Montes
--- NOTE | 2022-10-04 15:40 | PC.NURSE ---
pt resting no need at this time
--- NOTE | 2022-10-04 15:49 | PC.NURSE ---
COVID SWAB OBTAINED AND SENT TO LAB
[2022-10-04 15:51] LABS: Coronavirus 19, PCR Not Detected (NotDetected); Influenza A, PCR Not Detected (NotDetected); Influenza B, PCR Not Detected (NotDetected)
--- NOTE | 2022-10-04 16:02 | PC.NURSE ---
ECHO team notified of order
--- NOTE | 2022-10-04 16:30 | PC.NURSE ---
Called report to Sin FELIX on 2nd floor. Informed Jakob PINON is @ BS. Will call the floor when patient is ready to be transferred to the floor
--- NOTE | 2022-10-04 16:40 | PC.NURSE ---
vascular was in to do echo
--- NOTE | 2022-10-04 16:42 | PC.NURSE ---
has been paged
--- NOTE | 2022-10-04 16:44 | PC.NURSE ---
Spoke with to notify him of patient's ECHO performed @ [facility] and sustained a-flutter.
--- NOTE | 2022-10-04 18:35 | EXP.ACUTE.PN ---
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 Quiros for his primary care. He states he had 3 vessel CABG about 6 weeks ago and was recently diagnosed with diabetes. He states he has been feeling fairly well this week and came to his routine cardiology appointment this morning at the [facility] cardiology clinic. At that appointment, he was told he was in atrial flutter and he was escorted to the ER for further treatment. The ER physician told me that he spoke with Dr. Milton who directed him to give the patient IV Metoprolol and to get a stat Echo. Evidently metoprolol was unsuccessful in converting patient back to sinus rhythm, so I was called to admit patient for further evaluation. I have not spoken to anyone from the cardiology clinic today. There are no preliminary echo results available for review and the cardiology clinic progress note from today has conflicting information in the plan. It states the patient is on IV Lasix and Lovenox but then later states that he is taking Eliquis. The patient states he has been treated with oral Lasix 40 mg twice daily but he increased the dose to 80 mg twice daily a few weeks ago because he thought he had some extra leg swelling. He states he has not been taking Lovenox but has been on Eliquis. He states he has not been taking Entresto for a few weeks. Medical Exam Vital signs and Labs for Last 24 Hours: Vital Signs Temp Pulse Pulse Resp BP BP Pulse Ox 10/04/22 17:44 98 10/04/22 16:59 98.7 F 71 14 115/69 98 10/04/22 16:46 98.7 F 71 13 106/63 L 10/04/22 16:30 71 17 106/63 L 97 10/04/22 16:00 72 19 108/71 L 97 10/04/22 15:33 71 15 118/75 97 10/04/22 15:26 71 14 116/76 98 10/04/22 15:16 72 16 112/79 98 10/04/22 15:21 72 18 113/71 98 10/04/22 15:31 72 16 118/75 97 10/04/22 15:06 81 16 112/70 97 10/04/22 15:11 72 128/82 10/04/22 14:42 100 H 19 135/110 H 98 Intake and Output 10/04/22 10/04/22 10/04/22 07:59 15:59 23:59 Other: Weight 292 lb 284 lb 9.868 oz Patient Weight 10/04/22 23:59 Weight 284 lb 9.868 oz Laboratory Results - last 24 hr 10/04/22 15:45: SARS-CoV-2 (PCR) Not detected, Influenza A Untype (PCR) Not detected, Influenza Type B (PCR) Not detected I & O for Labs for Last 24 Hours: Intake & Output 10/01/22 10/02/22 10/03/22 10/04/22 23:59 23:59 23:59 23:59 Weight 284 lb 9.868 oz Constitutional: Present no acute distress Respiratory: Present normal respiratory effort Comment:: Irregularly irregular GI: Present normal bowel sounds; Absent tenderness Extremities: Present normal inspection, full ROM and edema (left leg 2+, right leg 1+) Comment:: purple discoloration over lower legs Neuro: Present Grossly Intact and moves all extremities Assessment and Plan *Assessment and plan (1) New onset atrial flutter: Status: Acute Category: Medical Code(s): I48.92 - Unspecified atrial flutter (2) Congestive heart failure (CHF): Status: Acute Category: Medical Code(s): I50.9 - Heart failure, unspecified (3) Coronary artery disease: Status: Acute Category: Medical Code(s): I25.10 - Atherosclerotic heart disease of false pass coronary artery without angina pectoris (4) Type 2 diabetes mellitus: Status: Acute Category: Medical Code(s): E11.9 - Type 2 diabetes mellitus without complications (5) Heart failure with reduced ejection fraction: Status: Acute Category: Medical Code(s): I50.20 - Unspecified systolic (congestive) heart failure (6) Atrial fibrillation: Status: Acute Category: Medical Code(s): I48.91 - Unspecified atrial fibrillation (7) Edema: Status: Acute Category: Medical Code(
--- NOTE | 2022-10-04 19:00 | XR_ITS ---
PROCEDURE INFORMATION: Exam: XR Chest Exam date and time: 10/04/2022 7:15 PM Age: 71 years old Clinical indication: Other: New a. Flutter; Prior surgery; Surgery date: 1-6 months; Surgery type: Cabg; Additional info: New onset a . flutter, recent cabg TECHNIQUE: Imaging protocol: Radiologic exam of the chest. Views: 2 views. COMPARISON: CR XR CHEST 2V 08/15/2022 11:47 AM FINDINGS: Lungs: There has developed moderate left perihilar infiltrate. Right lung appears clear. Pleural spaces: Unremarkable. No pleural effusion. No pneumothorax. Heart/Mediastinum: Unremarkable. No cardiomegaly. Bones/joints: Moderate degenerative changes noted in the spine. Sternotomy wires are in place IMPRESSION: Left perihilar infiltrate concerning for pneumonia
[2022-10-04 19:23] LABS: Basophils % 0.5 % (0.1-2.0); Eosinophils # 0.3 K/mm3 (0.0-0.4); Eosinophils % 3.3 % (0.1-12.0); Hematocrit 41.9 % (42.0-52.0); Hemoglobin 13.3 g/dL (14.1-18.0); Lymphocytes # 2.1 K/mm3 (0.7-4.5); Lymphocytes % 22.6 % (10-50); Mean Corpuscular HGB Conc 31.7 g/dL (31.8-35.4); Mean Corpuscular Hemoglobin 29.5 pg (27.0-31.2); Mean Platelet Volume 9.9 fl (7.4-10.4); Monocytes # 0.6 K/mm3 (0.1-1.0); Monocytes % 6.3 % (1.7-9.3); Neutrophils # 6.1 K/mm3 (1.8-7.8); Neutrophils % 67.3 % (37.0-80.0); Platelet Count 217 K/mm3 (142-424); Red Blood Count 4.51 M/mm3 (4.60-6.20); Red Cell Distribution Width 14.6 % (11.5-17.5); White Blood Count 9.1 K/mm3 (4.8-10.8)
[2022-10-04 19:24] LABS: Chloride 99 mmol/L (98-107)
[2022-10-04 19:25] LABS: Potassium 3.6 mmoL/L (3.5-5.1); Sodium 140 mmol/L (136-145)
[2022-10-04 19:28] LABS: Alanine Aminotransferase 40 U/L (12-78); Albumin Level 4.3 g/dl (3.5-5.0); Albumin/Globulin Ratio 1.2 (1.1-1.8); Alkaline Phosphatase 67 U/L (38-126); Anion Gap 16.6 mEq/L (5-15); Aspartate Amino Transferase 51 U/L (17-59); Bilirubin,Total 0.6 mg/dl (0.2-1.3); Blood Urea Nitrogen 21 mg/dl (9-20); Calcium 9.4 mg/dl (8.4-10.2); Carbon Dioxide 28 mmol/L (22.0-30.0); Creatinine Clearance Estimated 127 mL/min (50-200); Estimated Glomerular Filt Rate 84 ml/min (>60); GFR (African American) 101 ML/MIN (>60); Globulin 3.6 g/dL (1.3-3.2); Glucose 125 mg/dl (74-100); Total Protein,Serum 7.9 g/dl (6.3-8.2)
[2022-10-04 19:29] LABS: Magnesium 1.9 mg/dl (1.6-2.3)
[2022-10-04 19:38] LABS: NT Pro Brain Natriuretic Pep. 1500 pg/mL (0-125)
[2022-10-04 19:59] LABS: Thyroid Stimulating Hormone 2.23 uIU/mL (0.465-4.68)
[2022-10-04 20:57] LABS: POC Glucose,Bedside 144 (70-110)
[2022-10-05] VITALS: BP 119/69; PULSE 70; RESP 20; TEMP 36.4; O2SAT 96
[2022-10-05 04:00] VITALS: BP 126/79; PULSE 70; RESP 18; TEMP 36.7; O2SAT 99; BMI 36.9
[2022-10-05 05:34] LABS: POC Glucose,Bedside 124 (70-110)
[2022-10-05 06:55] LABS: Chloride 100 mmol/L (98-107); Sodium 140 mmol/L (136-145)
[2022-10-05 06:56] LABS: Potassium 4.4 mmoL/L (3.5-5.1)
[2022-10-05 06:58] LABS: Blood Urea Nitrogen 18 mg/dl (9-20); Creatinine Clearance Estimated 136 mL/min (50-200); Estimated Glomerular Filt Rate 112 ml/min (>60); GFR (African American) 135 ML/MIN (>60)
[2022-10-05 06:59] LABS: Anion Gap 19.4 mEq/L (5-15); Carbon Dioxide 25 mmol/L (22.0-30.0); Glucose 120 mg/dl (74-100)
[2022-10-05 07:14] VITALS: O2SAT 98
[2022-10-05 07:32] VITALS: BP 145/84; PULSE 70; RESP 18; TEMP 36.8; O2SAT 99
--- NOTE | 2022-10-05 07:42 | HMH.PHAINT1 ---
Pharmacy Intervention Comments: home medication list verified using list from outpatient pharmacy and cardiology notes
[2022-10-05 08:00] VITALS: PULSE 70
--- NOTE | 2022-10-05 08:51 | EXP.CARD.PN ---
Subjective Subjective Date: 10/05/22 Time: 08:51 Principal diagnosis: A. flutter, Recent CABG Interval history: 71-year-old white male admitted through the ER after being seen in the office yesterday for new onset atrial flutter with mild RVR. Patient was given a total of 25 mg of IV metoprolol in the ER but remained in atrial flutter but with a controlled rate. Patient states he feels better this morning with less edema. Due to the recent bypass surgery 6 weeks ago we have elected not to perform cardioversion which might jeopardize sternotomy healing. Patient continues on his anticoagulation of Eliquis. We will add bisoprolol to his Entresto which she is to be resuming today and will start amiodarone 200 mg twice daily to try to convert him chemically over the next few weeks. Exam Data for Last 24 hours Vital signs and Labs for Last 24 Hours: Temp Pulse Resp BP Pulse Ox 98.2 F 70 18 145/84 H 99 10/05/22 07:32 10/05/22 07:32 10/05/22 07:32 10/05/22 07:32 10/05/22 07:32 Laboratory Results - last 24 hr 10/04/22 14:52: WBC 9.1, RBC 4.51 L, Hgb 13.3 L, Hct 41.9 L, MCV 93.0, MCH 29.5, MCHC 31.7 L, RDW 14.6, Plt Count 217, MPV 9.9, Neut % (Auto) 67.3, Lymph % (Auto) 22.6, [place] % (Auto) 6.3, Eos % (Auto) 3.3, Baso % (Auto) 0.5, Neut # (Auto) 6.1, Lymph # (Auto) 2.1, [place] # (Auto) 0.6, Eos # (Auto) 0.3, Baso # (Auto) 0.0 10/04/22 14:52: Sodium 140, Potassium 3.6, Chloride 99, Carbon Dioxide 28, Anion Gap 16.6 H, BUN 21 H, Creatinine 0.90, Estimated Creat Clear 127, Estimated GFR 84, Est GFR ( Amer) 101, Glucose 125 H, Calcium 9.4, Magnesium 1.9, Total Bilirubin 0.6, AST 51, ALT 40, Alkaline Phosphatase 67, NT-Pro-B Natriuret Pep 1500 H, Total Protein 7.9, Albumin 4.3, Globulin 3.6 H, Albumin/Globulin Ratio 1.2, TSH 2.23 10/04/22 15:45: SARS-CoV-2 (PCR) Not detected, Influenza A Untype (PCR) Not detected, Influenza Type B (PCR) Not detected 10/04/22 20:35: POC Glucose 144 H 10/05/22 05:26: POC Glucose 124 H 10/05/22 05:44: Sodium 140, Potassium 4.4 D, Chloride 100, Carbon Dioxide 25, Anion Gap 19.4 H, BUN 18, Creatinine 0.70 D, Estimated Creat Clear 136, Estimated GFR 112, Est GFR ( Amer) 135 D, Glucose 120 H, Calcium 9.0 I & O for Last 24 hours: Intake & Output 10/02/22 10/03/22 10/04/22 10/05/22 11:59 11:59 11:59 11:59 Intake Total 840 / 840 Output Total Balance 838 / 838 Weight 303 lb 9 oz Constitutional Constitutional: no acute distress *Routine Respiratory Exam Respiratory: Present CTA bilaterally *Routine Cardiovascular Exam Cardiovascular: Present RRR *Routine Extremities Exam Extremities: Present edema; Absent cyanosis or clubbing Progress Note: A&P Assessment and plan (1) New onset atrial flutter: Status: Acute (2) Congestive heart failure (CHF): Status: Acute (3) Coronary artery disease: Status: Acute (4) Type 2 diabetes mellitus: Status: Acute (5) Heart failure with reduced ejection fraction: Status: Acute (6) Atrial fibrillation: Status: Acute (7) Edema: Status: Acute (8) Obesity: Status: Acute (9) DM type 2 (diabetes mellitus, type 2): Status: Acute (10) Non compliance with medical treatment: Status: Acute Assessment and Plan Assessment and Plan for All Diagnoses:: 1. New onset atrial flutter with mild RVR now controlled with beta-lisa therapy. Previous A. fib Start bisoprolol 5 mg daily Continue Eliquis 5 mg twice daily Start amiodarone 200 mg twice daily Consider cardioversion in 2 to 3 weeks if he remains in flutter 2. Coronary artery disease with recent CABG X 3 (ILENE off of PELAYO to LAD, Left radial artery to 2nd OM, PELAYO to ramus) on 08/21/2022 Clinically stable Continue Plavix and isosorbide due to radial graft Continue statin therapy 3. HFrEF with EF 50-55% on echo this admission (previously 40% with global hypokinesis earlier this year) Resume Entresto and Lasix 4. Diabetes
--- NOTE | 2022-10-05 08:56 | PC.NURSE ---
courtesy tech note; rounded on pt 0830, pt denied need for assistance with restroom, need for drink, or need to reposition. call light within reach, no further requests at this time rico locke
--- NOTE | 2022-10-05 08:56 | EXP.HP ---
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 Quiros for his primary care.? He states he had 3 vessel CABG about 6 weeks ago and was recently diagnosed with diabetes.? He states he has been feeling fairly well this week and came to his routine cardiology appointment this morning at the [facility] cardiology clinic.? At that appointment, he was told he was in atrial flutter and he was escorted to the ER for further treatment.? The ER physician told me that he spoke with Dr. Milton who directed him to give the patient IV Metoprolol and to get a stat Echo.? Evidently metoprolol was unsuccessful in converting patient back to sinus rhythm, so I was called to admit patient for further evaluation.? I have not spoken to anyone from the cardiology clinic today.? There are no preliminary echo results available for review and the cardiology clinic progress note from today has conflicting information in the plan.? It states the patient is on IV Lasix and Lovenox but then later states that he is taking Eliquis.? The patient states he has been treated with oral Lasix 40 mg twice daily but he increased the dose to 80 mg twice daily a few weeks ago because he thought he had some extra leg swelling.? He states he has not been taking Lovenox but has been on Eliquis.? He states he has not been taking Entresto for a few weeks. The above as per Dr. Montes To note patient was discharged from [facility] about 5 weeks ago after CABG. He states he has been doing quite well and has no complaints. 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 He has been aggressively diuresed to due to pleural effusions. He has been placed on metformin due to hyperglycemia. [facility] Disclaimer: The information contained in this section may have been updated after the patient was seen, as this information can be updated by other users. Medical History (Updated 10/04/22 @ 18:51 by Manas Montes MD) Atrial fibrillation Coronary artery disease DM type 2 (diabetes mellitus, type 2) Heart failure Kidney stones Obesity Quadriceps tendon rupture Systolic congestive heart failure Surgical History S/P CABG x 3 Family History Other Cancer Coronary artery disease Heart attack Heart disease Social History (Updated 10/04/22 @ 17:08 by Rupali Brennan, RN) Smoking Status: Never smoker alcohol intake: current current occupational status: employed Travel in the last 8 weeks: None Meds Home Medications and Allergies Home Medications Medication Instructions Recorded Confirmed Type apixaban 5 mg tablet (Eliquis) 5 mg PO BID Blood thinner/atrial 10/04/22 10/04/22 History fib atorvastatin 80 mg tablet 80 mg PO HS Cholesterol 10/04/22 10/04/22 History clopidogrel 75 mg tablet 75 mg PO DAILY hx of 10/04/22 10/04/22 History stents/platelet inhibitor docusate sodium 100 mg capsule 100 mg PO BID stool 10/04/22 10/04/22 History furosemide 40 mg tablet 40 mg PO BIDL Edema 10/04/22 10/05/22 History isosorbide mononitrate 30 mg 30 mg PO DAILY blood pressure 10/04/22 10/04/22 History tablet,extended release 24 hr metformin 500 mg tablet 500 mg PO DAILY Diabetes 10/04/22 10/04/22 History sacubitril 24 mg-valsartan 26 mg 1 tab PO BID Heart failure 10/05/22 10/05/22 History tablet (Entresto) New Prescriptions to Start Prescriptions: Allergies Allergy/AdvReac Type Severity Reaction Status Date / Time No Known Drug Allergies Allergy Verified 10/04/22 13:54 Exam Data for Last 24 hours Vital signs and Labs for Last 24 Hours: Temp Pulse Resp BP Pulse Ox 98.2 F 70 18 145/84 H 99 10/05/22 07:
--- NOTE | 2022-10-05 09:07 | EXP.HPDC ---
General Admission date:: 10/04/22 Discharge date: 10/05/22 *Admission Date: 10/04/22 *Chief complaint: Atrial fibs with right rapid ventricular response *History of present illness: Interval history: 71-year-old white male admitted through the ER after being seen in the office yesterday for new onset atrial flutter with mild RVR.? Patient was given a total of 25 mg of IV metoprolol in the ER but remained in atrial flutter but with a controlled rate.? Patient states he feels better this morning with less edema.? Due to the recent bypass surgery 2 weeks ago we have elected not to perform cardioversion which might jeopardize sternotomy healing. Patient continues on his anticoagulation of Eliquis.? We will add bisoprolol to his Entresto which she is to be resuming today and will start amiodarone 200 mg twice daily to try to convert him chemically over the next few weeks. The above as per Dr. Montes. Patient recently discharged from [facility] 5 weeks ago. 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 Yesterday was a routine follow-up check with cardiology. [facility] Disclaimer: The information contained in this section may have been updated after the patient was seen, as this information can be updated by other users. Medical History (Updated 10/05/22 @ 09:11 by Rukhsana Phipps APRN) Atrial fibrillation Coronary artery disease DM type 2 (diabetes mellitus, type 2) Heart failure Heart failure with reduced ejection fraction Kidney stones Obesity Quadriceps tendon rupture Systolic congestive heart failure Surgical History S/P CABG x 3 Family History Other Cancer Coronary artery disease Heart attack Heart disease Social History (Updated 10/04/22 @ 17:08 by Rupali Brennan RN) Smoking Status: Never smoker alcohol intake: current current occupational status: employed Travel in the last 8 weeks: None Review of Systems Constitutional Constitutional: Denies fever(s) and Denies headache(s) Eyes Eyes: Denies change in vision ENT Ears, Nose, Mouth, and Throat: Denies dysphagia, Denies otalgia, Denies headache(s), Reports post nasal drip, Denies sore throat and Denies vertigo *Cardiovascular Cardiovascular: Reports chest pain (Usual postop discomfort) and Denies dyspnea *Respiratory Respiratory: Denies chest congestion, Denies cough and Denies dyspnea *Gastrointestinal Gastrointestinal: Denies abdominal pain, Denies change in stool character, Denies diarrhea, Denies dysphagia, Denies nausea and Denies vomiting *Genitourinary Genitourinary: Denies difficulty urinating *Musculoskeletal Musculoskeletal: Denies abnormal gait *Neurologic Neurologic: Denies abnormal gait, Denies confusion, Denies headache(s) and Denies vertigo Psychiatric Psychiatric: Denies confusion Exam Data for Last 24 hours Vital signs and Labs for Last 24 Hours: Temp Pulse Resp BP Pulse Ox 98.2 F 70 18 145/84 H 99 10/05/22 07:32 10/05/22 07:32 10/05/22 07:32 10/05/22 07:32 10/05/22 07:32 Laboratory Results - last 24 hr 10/04/22 14:52: WBC 9.1, RBC 4.51 L, Hgb 13.3 L, Hct 41.9 L, MCV 93.0, MCH 29.5, MCHC 31.7 L, RDW 14.6, Plt Count 217, MPV 9.9, Neut % (Auto) 67.3, Lymph % (Auto) 22.6, [place] % (Auto) 6.3, Eos % (Auto) 3.3, Baso % (Auto) 0.5, Neut # (Auto) 6.1, Lymph # (Auto) 2.1, [place] # (Auto) 0.6, Eos # (Auto) 0.3, Baso # (Auto) 0.0 10/04/22 14:52: Sodium 140, Potassium 3.6, Chloride 99, Carbon Dioxide 28, Anion Gap 16.6 H, BUN 21 H, Creatinine 0.90, Estimated Creat Clear 127, Estimated GFR 84, Est GFR ( Amer) 101, Glucose 125 H, Calcium 9.4, Magnesium 1.9, Total Bilirubin 0.6, AST 51, ALT 40, Alkaline Phosphatase 67, NT-Pro-B Natriuret Pep 1500 H, Total Protein 7.9, Albumin 4.3, Globulin 3.6 H, Albumin/Globulin Ratio 1.2, TSH 2.23 10/04/22 15:45: SARS-CoV-2 (PCR) No
--- NOTE | 2022-10-05 09:53 | P.CONPHA_ITS ---
Pharmacy Intervention Comments: DISCHARGE MEDICATION COUNSELING PROVIDED. DISCUSSED STARTING THE AMIODARONE. THIS IS FOR HEART RATE/ATRIAL FIBRILLATION. IT IS PRESCRIBED TWICE DAILY. I RECOMMENDED TAKING WITH FOOD OR A SMALL SNACK DUE TO POSSIBLE GI UPSET (NAUSEA/VOMITING). LOWERED BLOOD PRESSURE AND SLOWED HEART RATE ARE ALSO POSS IBLE. PATIENT DID ASK IF HE SHOULD RESUME HIS 40 MG BID DOSING ON THE LASIX OR CONTINUE WITH THE 80 MG BID DOSING THAT HE WAS USING PRIOR TO ADMISSION DUE TO FLUID BUILDUP. I ADVISED THAT HE SHOULD RESTART THE 40 MG BID AND THAT THE FLUID BUILDUP WAS POSSIBLY DUE TO HIS IRREGULAR HEARTBEAT. 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 NO FURTHER QUESTIONS AT THIS TIME.
--- NOTE | 2022-10-05 11:25 | DIET.NUTRFU ---
RD consulted for diabetic and cardiac diet counseling. Patient lives with and she does most cooking. She was present during education. He reports he has already had diabetes education at and has made some diet changes aware it is mostly portion control. indicated his milk glass maybe larger than 8oz. He does not check his BS at home often but when he does it is <150. He does not believe in A1c and takes metformin at home. Reviewed carb counting and label reading, provided handouts. Reviewed sodium recommendations, he reports he has been checking labels and stopped eating lunchmeat and hotdogs but does drink low sodium V8. provided cardiac handouts also. Contact information provided for any further questions or concerns.
--- NOTE | 2022-10-08 14:23 | CARE MANAGER ---
Spoke with patient for post-discharge phone interview, no issues noted.
== END 2022-10-05 11:25 | disposition home or self-care (01) ==
LOC: ER 15:02 → 2ND 15:49
PROVIDERS: Admitting Provider Family Medicine; Emergency Provider Emergency Medicine; PCP Family Medicine; Visit Provider Family Medicine
DX: I48.92 Unspecified atrial flutter (principal); I50.20 Unspecified systolic (congestive) heart failure; E11.9 Type 2 diabetes mellitus without complications; I25.10 Atherosclerotic heart disease of native coronary artery without angina pectoris; I48.91 Unspecified atrial fibrillation; Z95.1 Presence of aortocoronary bypass graft; Z79.01 Long term (current) use of anticoagulants; Z79.84 Long term (current) use of oral hypoglycemic drugs; I11.0 Hypertensive heart disease with heart failure; Z79.02 Long term (current) use of antithrombotics/antiplatelets
CPT/HCPCS: G0378; 71046; 80048; 80053; 82962; 83735; 83880; 84443; 85025; 87636; 93005; 93306; 99285; C9803; U0003; U0005

== ENCOUNTER 2022-11-14 09:53 | Outpatient (RCR) | payer MEDICARE, SELFPAY | END 2022-12-21 10:15 | disposition home or self-care (01) | LOC: PT 09:53 | PROVIDERS: Visit Provider Physician Assistant | DX: I50.20 Unspecified systolic (congestive) heart failure (principal); R60.9 Edema, unspecified; I25.10 Atherosclerotic heart disease of native coronary artery without angina pectoris; I48.92 Unspecified atrial flutter | CPT/HCPCS: 93798 ==

== ENCOUNTER → 2022-12-17 10:12 | Day surgery (SDC) | payer MEDICARE, SELFPAY ==
[2022-12-17 10:19] VITALS: BMI 35.3
[2022-12-17 10:43] VITALS: BP 132/88; PULSE 65; PULSE 69; RESP 12; O2SAT 97
[2022-12-17 10:51] LABS: Basophils # 0.1 K/mm3 (0-0.2); Basophils % 0.6 % (0.1-2.0); Eosinophils # 0.2 K/mm3 (0.0-0.4); Eosinophils % 1.7 % (0.1-12.0); Hemoglobin 16.1 g/dL (14.1-18.0); Lymphocytes # 2.1 K/mm3 (0.7-4.5); Lymphocytes % 20.1 % (10-50); Mean Corpuscular HGB Conc 32.2 g/dL (31.8-35.4); Mean Corpuscular Hemoglobin 29.9 pg (27.0-31.2); Mean Corpuscular Volume 92.8 fl (80-94); Monocytes # 0.7 K/mm3 (0.1-1.0); Monocytes % 6.3 % (1.7-9.3); Neutrophils # 7.6 K/mm3 (1.8-7.8); Neutrophils % 71.2 % (37.0-80.0); Platelet Count 171 K/mm3 (142-424); Red Blood Count 5.39 M/mm3 (4.60-6.20); Red Cell Distribution Width 14.6 % (11.5-17.5); White Blood Count 10.6 K/mm3 (4.8-10.8)
[2022-12-17 10:56] LABS: Chloride 109 mmol/L (98-107); Potassium 4.7 mmoL/L (3.5-5.1); Sodium 142 mmol/L (136-145)
[2022-12-17 10:59] LABS: Anion Gap 17.7 mEq/L (5-15); Blood Urea Nitrogen 32 mg/dl (9-20); Calcium 9.8 mg/dl (8.4-10.2); Carbon Dioxide 20 mmol/L (22.0-30.0); Creatinine Clearance Estimated 118 mL/min (50-200); Estimated Glomerular Filt Rate 66 ml/min (>60); GFR (African American) 80 ML/MIN (>60); Glucose 129 mg/dl (74-100)
== END | disposition home or self-care (01) ==
PROVIDERS: PCP Family Medicine; Visit Provider Internal Medicine
DX: I48.92 Unspecified atrial flutter (principal); Z53.09 Procedure and treatment not carried out because of other contraindication
CPT/HCPCS: 80048; 85025

== ENCOUNTER 2023-09-16 10:45 | Outpatient (CLI) | payer MEDICARE, SELFPAY ==
--- NOTE | 2023-09-16 10:58 | ECG_ITS ---
APPROVED REPORT Exam: Resting ECG HR:53 bpm ECG Measurements Heart Rate 53 AXES QRSd 140 QRS -34 QT 514 T 29 QTc 498 Conclusion ATRIAL FLUTTER/TACHYCARDIA WITH SLOW VENTRICULAR RESPONSE INTRAVENTRICULAR CONDUCTION DELAY [130+ ms QRS DURATION] INFERIOR MYOCARDIAL INFARCTION , OF INDETERMINATE AGE [40+ ms Q WAVE AND/OR ST/T ABNORMALITY IN II/aVF] ABNORMAL ECG UNCONFIRMED REPORT Electronically signed by : Frandy Cutler MD 09/16/2023 13:53:28
== END 2023-09-16 23:59 | disposition home or self-care (01) ==
PROVIDERS: PCP Family Medicine; Visit Provider Family Medicine
DX: I11.0 Hypertensive heart disease with heart failure (principal)
CPT/HCPCS: 93005

== ENCOUNTER 2024-05-21 14:34 | Outpatient (CLI) | payer MEDICARE, SELFPAY ==
--- NOTE | 2024-05-21 14:50 | ECG_ITS ---
APPROVED REPORT Exam: Resting ECG HR:70 bpm ECG Measurements Heart Rate 70 AXES AL 234 P 82 QRSd 116 QRS -20 QT 490 T 52 QTc 511 Conclusion SINUS RHYTHM WITH FIRST DEGREE AV BLOCK LOW QRS VOLTAGE IN PRECORDIAL LEADS [QRS DEFLECTION < 1.0 mV IN CHEST LEADS] INCOMPLETE RIGHT BUNDLE BRANCH BLOCK [90+ ms QRS DURATION, TERMINAL R IN V1/V2, 40+ ms S IN I/aVL/V4/V5/V6] POSSIBLE ANTERIOR MYOCARDIAL INFARCTION , OF INDETERMINATE AGE [30 ms Q WAVE IN V3/V4, OR R < 0.2 mV IN V4] INFERIOR MYOCARDIAL INFARCTION , OF INDETERMINATE AGE [40+ ms Q WAVE AND/OR ST/T ABNORMALITY IN II/aVF] ABNORMAL ECG UNCONFIRMED REPORT Electronically signed by : Frandy Cutler MD 05/23/2024 21:01:01
== END 2024-05-21 23:59 | disposition home or self-care (01) ==
LOC: RT 14:36
PROVIDERS: PCP Family Medicine; Visit Provider Family Medicine
DX: I50.22 Chronic systolic (congestive) heart failure (principal)
CPT/HCPCS: 93005